=== PATIENT | female | born 1965 | race African-American/Black ===

== ENCOUNTER 2021-03-26 04:01 | Emergency (ER) | payer OTHER ==
[2021-03-26] MEDS ORDERED: NA CHLORIDE 0.9% 1,000 ML ONE (05:19)
[2021-03-26] MEDS ORDERED: KETOROLAC 30 MG/ML INJ ONE (05:21)
[2021-03-26] MEDS ORDERED: METHYLPREDNISOLONE 125 MG INJ ONE (05:25)
[2021-03-26] MEDS ORDERED: DIAZEPAM 5 MG TABLET ONE (05:26)
[2021-03-26 06:58] LABS: Basophils % 0.5 % (0-1.3); Hematocrit 33.4 % (36.0-45.0); Lymphocytes % 15.9 % (15.3-44.8); MPV 7.5 fL (7.6-11.3); RBC Red Blood Cell Count 3.58 M/uL (3.86-4.86)
[2021-03-26 07:24] LABS: ALT/SGPT 21 U/L (12-78); AST/SGOT 11 U/L (15-37); Albumin 3.6 g/dL (3.4-5.0); Alkaline Phosphatase 71 U/L (45-117); BUN Blood Urea Nitrogen 20 mg/dL (7-18); Bicarbonate 25 mmol/L (21-32); Bilirubin Total 0.5 mg/dL (0.2-1.0); Glucose Level 101 mg/dL (74-106); Potassium 3.6 mmol/L (3.5-5.1); Protein, Total 7.2 g/dL (6.4-8.2); Sodium Level 141 mmol/L (136-145); Troponin I < 0.02 ng/mL (0.0-0.045)
--- NOTE | 2021-03-26 07:58 | EKG ---
Test Date: 2021-03-26 Test Time: 05:11:58 Mat Puncher: MEASUREMENT RESULTS: Intervals: Rate: 64 GA: 182 QRSD: 78 QT: 408 QTc: 420 Mcgrath: P: 30 GA: 182 QRS: 29 T: 40 INTERPRETIVE STATEMENTS: Normal sinus rhythm Cannot rule out Anterior infarct, age undetermined Abnormal ECG No previous ECG available for comparison Electronically Signed On 03-26-21 07:57:26 CDT by Jason Olson
--- NOTE | 2021-03-26 08:02 | RAD REPORT ---
EXAM DESCRIPTION: Shoulder Right 2 View - 03/26/2021 5:26 am CLINICAL HISTORY: PAIN COMPARISON: No comparisons TECHNIQUE: Internal and external rotation views of the right shoulder were obtained. FINDINGS: There is no fracture or dislocation. No AC joint separation or measurable spurring along the inferior margin. Acromial humeral joint space is normal. No abnormal soft tissue calcifications s een. There is minimal degenerative spurring along the greater tuberosity. No acute or suspicious find ings. IMPRESSION: Minimal right shoulder joint degenerative change. No acute finding.
--- NOTE | 2021-03-26 11:10 | RAD REPORT ---
EXAM DESCRIPTION: CT - Head Brain Wo Cont - 03/26/2021 6:57 am CLINICAL HISTORY: PAIN COMPARISON: None. TECHNIQUE: Head/brain axial images acquired without contrast. Coronal and sagittal reformats created . Exam performed according to departmental dose-optimization program which includes automated exposur e control, adjustment of mA and/or kV according to patient size, and/or use of iterative reconstructi on technique. FINDINGS: No midline shift, mass effect, intracranial hemorrhage, or hydrocephalus. Brain parenchyma unremarkable. Paranasal sinuses clear. Mastoid air cells clear. No skull fracture or significant skull lesion. IMPRESSION: Unremarkable CT head/brain without contrast. Electronically signed by: Anthony Cui MD 03/26/2021 6:39 AM CDT Due to temporary technical issues with the PACS/Fluency reporting system, reports are being signed by the in house radiologists without review as a courtesy to insure prompt reporting. The interpreting radiologist is fully responsible for the content of the report.
--- NOTE | 2021-03-26 17:58 | EDPHYS ---
Physician Documentation [facility] Name: Lesly Javier Age: 55 yrs Sex: Female : 1965 Arrival Date: 03/26/2021 Time: 04:05 Bed 15 Private MD: Kevin Pickett HPI: 03/26 04:53 This 55 yrs old Black Female presents to ER via Ambulatory with complaints of RTside andrea pain,knot on arm, unable to lift arm. 04:53 The patient or guardian complains of decreased range of motion, pain, that is acute. andrea right shoulder. Context: The problem was sustained at an unknown site. Onset: The symptoms/episode began/occurred 20 day(s) ago. Modifying factors: the symptoms are alleviated by remaining still, The symptoms are aggravated by lifting weight, movement. Associated signs and symptoms: The patient has no apparent associated signs or symptoms. The patient presents with decreased range of motion, pain, that is acute. The complaints affect the right leg. Context: The problem was sustained at an unknown site. Modifying factors: The symptoms are alleviated by remaining still, the symptoms are aggravated by movement, weight bearing. 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 - Social history:: Smoking status: Patient denies any tobacco usage or history of. - Family history:: not pertinent. ROS: 04:53 Constitutional: Negative for fever, chills, and weight loss, Eyes: Negative for injury, andrea pain, redness, and discharge, ENT: Negative for injury, pain, and discharge, Neck: Negative for injury, pain, and swelling, Cardiovascular: Negative for chest pain, palpitations, and edema, Respiratory: Negative for shortness of breath, cough, wheezing, and pleuritic chest pain, Abdomen/GI: Negative for abdominal pain, nausea, vomiting, diarrhea, and constipation, Back: Negative for injury and pain, : Negative for injury, bleeding, discharge, and swelling, Skin: Negative for injury, rash, and discoloration, Neuro: Negative for headache, weakness, numbness, tingling, and seizure, Psych: Negative for depression, anxiety, suicide ideation, homicidal ideation, and hallucinations, Allergy/Immunology: Negative for hives, rash, and allergies, Endocrine: Negative for neck swelling, polydipsia, polyuria, polyphagia, and marked weight changes, Hematologic/Lymphatic: Negative for swollen nodes, abnormal bleeding, and unusual bruising. 04:53 MS/extremity: Positive for decreased range of motion, pain, tenderness, of the right arm and right leg. Exam: 04:53 Constitutional: This is a well developed, well nourished patient who is awake, alert, andrea and in no acute distress. Head/Face: Normocephalic, atraumatic. Eyes: Pupils equal round and reactive to light, extra-ocular motions intact. Lids and lashes normal. Conjunctiva and sclera are non-icteric and not injected. Cornea within normal limits. Periorbital areas with no swelling, redness, or edema. ENT: Nares patent. No nasal discharge, no septal abnormalities noted. Tympanic membranes are normal and external auditory canals are clear. Oropharynx with no redness, swelling, or masses, exudates, or evidence of obstruction, uvula midline. Mucous membranes moist. Neck: Trachea midline, no thyromegaly or masses palpated, and no cervical lymphadenopathy. Supple, full range of motion without nuchal rigidity, or vertebral point tenderness. No Meningismus. Chest/axilla: Normal chest wall appearance and motion. Nontender with no deformity. No lesions are appreciated. Cardiovascular: Regular rate and rhythm with a normal S1 and S2. No gallops, murmurs, or rubs. Normal PMI, no JVD. No pulse deficits. Respiratory: Lungs have equal breath sounds bilaterally, clear to auscultation and percussion. No rales, rhonchi or wheezes noted. No increased work of breathing, no retractions or nasal flaring. Abdomen/GI: Soft, non-tender, with normal bowel sounds. No distension or tympany. No guarding or rebound. No evidence of tenderness throughout. Back: No spinal tenderness. No costovertebral tenderness. Full range of motion. Skin: Warm, dry with normal turgor. Normal color with no rashes, no lesions, and no evidence of cellulitis. Neuro: Awake and alert, GCS 15, oriented to person, place, time, and situation. Cranial nerves II-XII grossly intact. Motor strength 5/5 in all extremities. Sensory grossly intact. Cerebellar exam normal. Normal gait. Psych: Awake, alert, with orientation to person, place and time. Behavior, mood, and affect are within normal limits. 04:53 Musculoskeletal/extremity: Extremities: all appear grossly normal, with no appreciated pain with palpation, ROM: limited active range of motion, limited passive range of motion, limited active range of motion due to pain, limited passive range of motion due to pain, in the right arm and right leg, Circulation is intact in all extremities. Sensation intact. Compartment Syndrome exam of affected extremity: is normal. DVT Exam: no swelling, no tenderness, negative Homans' sign noted on exam, no appreciated bluish discoloration, no erythema, no increased warmth, pain. 04:53 Neuro: Orientation: is normal, appropriate for stated age, no acute changes, Mentation: appropriate for stated age, no acute changes, responsive to voice Memory: appropriate for stated age, no acute changes, Cranial nerves: is grossly normal based on the patient's age, no acute changes, Cerebellar function: is grossly normal, is grossly normal based on the patient's age, no acute changes, Motor: moves all fours, strength is normal, Sensation: is normal, no obvious gross deficits, appropriate Gait: not applicable is steady, Deep tendon reflexes are 2+ (normal) in the bilateral brachioradialis, bicep, tricep and patellar and Achilles tendons, Babinski testing is normal, seizure activity, is not displayed by the patient. 05:18 ECG was reviewed by the Attending Physician. [facility] Vital Signs: 04:23 BP 160 / 93; Pulse 73; Resp 18; Temp 97.9; Pulse Ox 99% on R/A; Weight 82.1 kg; Height em 5 ft. 1 in. (154.94 cm); Pain 8/10; 06:03 BP 142 / 84; Pulse 70; Resp 16; Pulse Ox 100% on R/A; ak2 04:23 Body Mass Index 34.20 (82.10 kg, 154.94 cm) em MDM: 04:39 Patient medically screened. [facility] 05:16 Differential diagnosis: tendonitis, closed fracture. Data reviewed: vital signs, nurses [facility] notes, lab test result(s), EKG, radiologic studies, CT scan. 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 Test interpretation: by ED physician or midlevel provider: ECG, plain radiologic studies. Counseling: I had a detailed discussion with the patient and/or guardian regarding: the historical points, exam findings, and any diagnostic results supporting the discharge/admit diagnosis, lab results, radiology results, the need for outpatient follow up, for definitive care, a family practitioner, a neurologist. 03/26 04:53 Order name: CBC with Diff [facility] 03/26 04:53 Order name: Comprehensive Metabolic Panel; Complete Time: 07:39 [facility] 03/26 07:39 Interpretation: Normal except: CL 109; BUN 20; CA 8.2; A/G 1.0; GLOB 3.6; AST 11. 03/26 04:53 Order name: Sed Rate; Complete Time: 08:06 [facility] 03/26 08:06 Interpretation: Within normal limits: SED 20. 03/26 04:53 Order name: Shoulder Right (2 View) XRAY; Complete Time: 08:06 [facility] 03/26 08:07 Interpretation: Reviewed. 03/26 04:53 Order name: Troponin I; Complete Time: 07:39 [facility] 03/26 07:39 Interpretation: TROP < 0.02; Reviewed. 03/26 04:53 Order name: CBC with Automated Diff; Complete Time: 08:06 [facility] 03/26 07:03 Interpretation: Normal except: RBC 3.58; HGB 11.4; HCT 33.4; MPV 7.5; DON% 79.1. 03/26 04:53 Order name: EKG; Complete Time: 04:53 [facility] 03/26 04:53 Order name: EKG - Nurse/Tech; Complete Time: 08:27 [facility] 03/26 04:53 Order name: CT Head Brain wo Cont [facility] 03/26 04:53 Order name: Sling: right arm before dc andrea EC:18 Rate is 64 beats/min. Rhythm is regular. QRS Brayton is Normal. MT interval is normal. QRS andrea interval is normal. QT interval is normal. No Q waves. T waves are Normal. No ST changes noted. Clinical impression: NSR w/ Non-specific ST/T Changes and No evidence of ischemia. Interpreted by me. Reviewed by me. Administered Medications: 05:01 Drug: NS 0.9% 1000 ml Route: IV; Rate: 1 bolus; Site: left antecubital; ak2 05:01 Drug: Ketorolac 30 mg Route: IVP; Site: left antecubital; ak2 05:04 Drug: SOLU-Medrol (methylPrednisoLONE) 125 mg Route: IVP; Site: left antecubital; ak2 05:04 Drug: Valium (diazepam) 5 mg Route: PO; ak2 Disposition Summary: 03/26/21 08:59 Discharge Ordered Location: Home cp Problem: new cp Symptoms: have improved cp Condition: Stable cp Diagnosis - Pain in right shoulder cp - Pain in right leg cp Followup: andrea - With: Private Physician - When: 2 - 3 days - Reason: Recheck today's complaints, Continuance of care, Re-evaluation by your physician Discharge Instructions: - Discharge Summary Sheet andrea - Joint Pain andrea - Musculoskeletal Pain andrea - Shoulder Pain andrea - Shoulder Range of Motion Exercises andrea - Shoulder Pain, [id number] andrea - Arthritis, [id number] andrea Forms: - Medication Reconciliation Form cp - Thank You Letter cp - Antibiotic Education cp - Prescription Opioid Use cp - Work release form ll1 Prescriptions: - Ibuprofen 600 mg Oral Tablet - take 1 tablet by ORAL route every 6 hours As needed take with food; 21 tablet; andrea Refills: 0, Product Selection Permitted - Medrol (Douglas) 4 mg Oral Tablets, Dose Pack - take 1 tablet by ORAL route as directed - follow package instructions; 1 andrea packet; Refills: 0, Product Selection Permitted - Cyclobenzaprine 10 mg Oral Tablet - take 1 tablet by ORAL route every 8 hours As needed; 20 tablet; Refills: 0, cp Product Selection Permitted Signatures: Dispatcher [employer] Kevin Antonio MD MD cha Munoz, Edgar RN RN Kevin Shah PA PA cp [place], Anthony ak2 Corrections: (The following items were deleted from the chart) 04:26 Allergies: No Known Allergies; em em 04: 04:26 PSHx: section; em em 07:39 07:39 Normal except: CL 109; BUN 20. cp cp 07:39 07:39 Normal except: CL 109; BUN 20; CA 8.2; A/G 1.0; GLOB 3.6. cp cp
--- NOTE | 2021-03-26 17:58 | ER ---
Nurse's Notes [facility] Name: Lesly Javier Age: 55 yrs Sex: Female : 1965 Arrival Date: 03/26/2021 Time: 04:05 Bed 15 Private MD: Diagnosis: Pain in right shoulder;Pain in right leg Presentation: 03/26 04:23 Chief complaint: Patient states: right shoulder pain for several weeks, unable to lift em right arm due to pain, has been getting worse, also reports a knot on right forearm. Coronavirus screen: Client denies travel out of the [place] in the last 14 days. Ebola Screen: Patient negative for fever greater than or equal to 101.5 degrees Fahrenheit, and additional compatible Ebola Virus Disease symptoms Patient denies exposure to infectious person. Patient denies travel to an Ebola-affected area in the 21 days before illness onset. No symptoms or risks identified at this time. Initial Sepsis Screen: Does the patient meet any 2 criteria? No. Patient's initial sepsis screen is negative. Does the patient have a suspected source of infection? No. Patient's initial sepsis screen is negative. Risk Assessment: Do you want to hurt yourself or someone else? Patient reports no desire to harm self or others. Onset of symptoms was March 26, 2021. 04:23 Method Of Arrival: Ambulatory em 04:23 Acuity: ZACHARY 3 em Triage Assessment: 04:37 General: Appears in no apparent distress. Behavior is calm, cooperative. Pain: ak2 Complains of pain in right arm. Neuro: No deficits noted. Cardiovascular: No deficits noted. Respiratory: No deficits noted. 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 - Social history:: Smoking status: Patient denies any tobacco usage or history of. - Family history:: not pertinent. Screenin:39 Abuse screen: Denies threats or abuse. Denies injuries from another. Nutritional ak2 screening: No deficits noted. Tuberculosis screening: No symptoms or risk factors identified. Fall Risk None identified. Assessment: 04:38 Reassessment: Patient and/or family updated on plan of care and expected duration. Pain ak2 level reassessed. General: Appears. Neuro:. Vital Signs: 04:23 BP 160 / 93; Pulse 73; Resp 18; Temp 97.9; Pulse Ox 99% on R/A; Weight 82.1 kg; Height em 5 ft. 1 in. (154.94 cm); Pain 8/10; 06:03 BP 142 / 84; Pulse 70; Resp 16; Pulse Ox 100% on R/A; ak2 04:23 Body Mass Index 34.20 (82.10 kg, 154.94 cm) em ED Course: 04:05 Patient arrived in ED. es 04:26 Triage completed. em 04:26 Arm band placed on. em 04:39 Kevin Sullivan MD is Attending Physician. [facility] 04:39 Patient has correct armband on for positive identification. ak2 04:39 No provider procedures requiring assistance completed. ak2 05:27 Shoulder Right (2 View) XRAY In Process Unspecified. EDMS 05:33 CT Head Brain wo Cont In Process Unspecified. EDMS 06:16 Kevin Tobin PA is PHCP. cp 07:22 Erich Walker, KJ is Primary Nurse. ll1 08:27 CBC with Diff Sent. ll1 Administered Medications: 05:01 Drug: NS 0.9% 1000 ml Route: IV; Rate: 1 bolus; Site: left antecubital; ak2 05:01 Drug: Ketorolac 30 mg Route: IVP; Site: left antecubital; ak2 05:04 Drug: SOLU-Medrol (methylPrednisoLONE) 125 mg Route: IVP; Site: left antecubital; ak2 05:04 Drug: Valium (diazepam) 5 mg Route: PO; ak2 Outcome: 08:59 Discharge ordered by . cp 09:20 Patient left the ED. ll1 Signatures: Dispatcher [employer] EDMS Kevin Sullivan MD MD cha Salyer, Edna es Munoz, Edgar, RN RN em Kevin Tobin PA PA cp Lewis, Lynsay, RN RN ll1 Yair Llanos ak2 Corrections: (The following items were deleted from the chart) 04:27 04:26 Allergies: No Known Allergies; em em 04:27 04:26 PSHx: section; em em
[2021-03-27 19:41] VITALS: TEMP 97.9
[2021-03-27 19:44] VITALS: BP 142/84; O2SAT 100
== END 2021-03-26 09:20 | disposition home or self-care (01) ==
LOC: ER 04:01
DX: M25.511 Pain in right shoulder (principal); M79.604 Pain in right leg; Z98.84 Bariatric surgery status
CPT/HCPCS: 93005; 85025; 36415; 85652; 84484; 80053; 70450; 73030; J7030; J2930